=== PATIENT | male | born 2000 | race Caucasian/White ===

== ENCOUNTER 2020-10-31 21:15 | Emergency (ER) | payer SELFPAY ==
[~2020-10-31] VITALS: Ht 172.7 cm; Wt 68.0 kg
[2020-10-31 21:25] VITALS: BP_SYST 113
[2020-10-31 22:49] LABS: HEMATOCRIT 39.3 % (36-54); HEMOGLOBIN 13.5 g/dL (14.0-18.0); MEAN CORPUSCULAR HEMOGLOBIN 29 pg (27-31); MEAN CORPUSCULAR HGB CONC 35 % (32-36); MEAN CORPUSCULAR VOLUME 84 fL (79.0-98.0); PLATELET COUNT (AUTO) 269 K/uL (130-430); RED BLOOD CELL COUNT(AUTO) 4.67 MIL/uL (4.2-6.2); RED CELL DISTRIBUTION WIDTH 12.5 % (9.0-15.0); WHITE BLOOD COUNT (AUTO) 16.1 K/uL (4.5-11.0)
[2020-10-31 23:01] LABS: BILIRUBIN,URINE 1+ (NEGATIVE); BLOOD, URINE NEGATIVE (NEGATIVE); COLOR,URINE YELLOW (YELLOW); GLUCOSE,URINE NEGATIVE (NEGATIVE); KETONES,URINE TRACE (NEGATIVE); LEUKOCYTE ESTERASE ,URINE NEGATIVE (NEGATIVE); NITRITE, URINE NEGATIVE (NEGATIVE); PH,URINE 5.5 (5.0-8.0); PROTEIN URINE TRACE (NEGATIVE); UROBILINOGEN,URINE 0.2 (0.2-1.0)
[2020-10-31 23:03] LABS: CALCIUM 8.7 mg/dL (8.4-11.0); CREATININE 1.03 mg/dL (0.55-1.30); POTASSIUM 3.6 mmol/L (3.5-5.1)
[2020-10-31 23:08] LABS: TOTAL BILIRUBIN 0.3 mg/dL (0.0-1.0)
[2020-10-31 23:14] LABS: CLARITY/URINE SLIGHTLY HAZY (CLEAR)
[2020-10-31] MEDS ORDERED: NALOXONE HCL 2 MG/2 ML SYR IVP ONE (23:15)
[2020-10-31] MEDS ORDERED: NALOXONE HCL 2 MG/2 ML SYR ONE (23:19)
[2020-10-31 23:22] LABS: BACTERIA,URINE FEW /HPF (None Seen); MUCUS,URINE 2+ /LPF (None Seen); RBC,URINE NONE SEEN /HPF (0-3); WBC,URINE 0-3 /HPF (0-3)
[2020-10-31 23:35] LABS: BAND % (MANUAL) 10 % (0-6); BASOPHILS % (MANUAL) 0 % (0-2); EOSINOPHILS % (MANUAL) 0 % (0-7); LYMPHOCYTES % (MANUAL) 14 % (20-46); MONOCYTES % (MANUAL) 5 % (0-11)
[2020-11-01 00:09] LABS: BARBITURATE, URINE NEGATIVE (NEG <=200); BENZODIAZEPINE, URINE NEGATIVE (NEG <=150); CANNABINOID, URINE POSITIVE (NEG <=50); COCAINE, URINE NEGATIVE (NEG <=150); OPIATE, URINE NEGATIVE (NEG <=100); PHENCYCLIDINE SCREEN,URINE NEGATIVE (NEG <=25); UR TRICYCLIC ANTIDEPRESSANTS NEGATIVE (NEG <=300); URINE AMPHETAMINE NEGATIVE (NEG <=500); URINE METHADONE NEGATIVE (NEG <=200); URINE OXYCODONE SCREEN NEGATIVE (NEG <=100); URINE PROPOXYPHENE SCREEN NEGATIVE (NEG <=300)
[2020-11-01 00:10] LABS: METHAMPHETAMINES SCREEN,URINE POSITIVE (NEG <=500)
[2020-11-01] MEDS ORDERED: NACL 0.9% 2,000 ML IV ONE ×2 (00:15)
[2020-11-01] MEDS ORDERED: AZITHROMYCIN 500 MG in NS 250 ML IV ONE ×4 (00:15)
[2020-11-01] MEDS ORDERED: PIPERACILLIN/TAZO 3.375 GM in NS 50 ML IV ONE ×4 (00:15)
[2020-11-01] MEDS ORDERED: ACETAMINOPHEN 500 MG TABLET PO ONE (00:15)
[2020-11-01] MEDS ORDERED: AZITHROMYCIN 500 MG/VIAL (ZITHROMAX) IV ONE (00:38)
[2020-11-01] MEDS ORDERED: IOHEXOL 350 mgI/mL, 150 ML INFUS..BTL IV ONE (01:29)
[2020-11-01 03:57] LABS: RED BLOOD CELL COUNT(AUTO) 4.36 MIL/uL (4.2-6.2); WHITE BLOOD COUNT (AUTO) 10.1 K/uL (4.5-11.0)
[2020-11-01 03:58] LABS: HEMATOCRIT 37.3 % (36-54); HEMOGLOBIN 12.6 g/dL (14.0-18.0); LYMPHOCYTES % (AUTO) 22.4 % (20.5-51.5); MEAN CORPUSCULAR HEMOGLOBIN 29 pg (27-31); MEAN CORPUSCULAR HGB CONC 34 % (32-36); MEAN CORPUSCULAR VOLUME 86 fL (79.0-98.0); MONOCYTES % (AUTO) 5.3 % (1.7-9.3); NEUTROPHILS % (AUTO) 72.1 % (40.0-70.0); PLATELET COUNT (AUTO) 236 K/uL (130-430); RED CELL DISTRIBUTION WIDTH 12.2 % (9.0-15.0)
[2020-11-01 03:59] LABS: BASOPHILS % (AUTO) 0.1 % (0.0-2.0); EOSINOPHILS % (AUTO) 0.1 % (0.0-4.0); LYMPHOCYTES # (AUTO) 2.3 K/uL (1.0-5.5); MONOCYTES # (AUTO) 0.5 K/uL (0.0-1.0); NEUTROPHILS # (AUTO) 7.3 K/uL (1.8-7.7)
[2020-11-01 04:18] LABS: ANION GAP 7 (5-15); CALCIUM 7.8 mg/dL (8.4-11.0); CHLORIDE 106 mmol/L (98-107); GLUCOSE 87 mg/dL (70-99); POTASSIUM 4.1 mmol/L (3.5-5.1); SODIUM SERUM 139 mmol/L (136-145)
[2020-11-01 04:19] LABS: ALANINE AMINOTRANSFERASE 31 U/L (12-78); ALBUMIN 3.3 g/dL (3.4-4.8); ASPARTATE AMINOTRANSFERASE 30 U/L (10-37); CREATININE 0.83 mg/dL (0.55-1.30); GFR AFRICAN AMERICAN 152 mL/min (>90); TOTAL BILIRUBIN 0.4 mg/dL (0.0-1.0); UREA NITROGEN, BLOOD 13 mg/dL (8-21)
[2020-11-01] MEDS ORDERED: ONDANSETRON HCL 4 MG/2 ML VIAL IVP PRN (05:30)
[2020-11-01] MEDS ORDERED: NACL 0.9% 1,000 ML IV SCH (05:30)
[2020-11-01 06:00] VITALS: BP_SYST 118
== END 2020-11-01 06:00 | disposition left against medical advice (07) ==
LOC: SED 21:15 → SMU 11-01 05:25 → UNDOADMIN 11-01 05:25 → UNDODISIN 11-01 06:00
DX: R07.89 Other chest pain (principal); R09.81 Nasal congestion; D72.825 Bandemia; F15.93 Other stimulant use, unspecified with withdrawal; F15.988 Other stimulant use, unspecified with other stimulant-induced disorder; F12.988 Cannabis use, unspecified with other cannabis-induced disorder; Z20.822 Contact with and (suspected) exposure to COVID-19; Z79.899 Other long term (current) drug therapy
CPT/HCPCS: 36415; 71045; 71275; 76376; 80053 ×2; 80307; 81000; 83605 ×2; 84484 ×2; 85007; 85025; 85027; 85379; 85610; 87040; 87426; 93005; 96365; 96366; 96368; 96375; 99285; G0482; J0456; J2310; Q9967